=== PATIENT | male | born 1940 | race Caucasian/White ===

== ENCOUNTER 2022-01-05 10:15 | Inpatient (IN) | payer MEDICARE, BC ==
[2022-01-05 11:17] LABS: #Eosinphils 0.1 thou/uL (0.0-0.7); #Lymphocytes 1.9 thou/uL (1.20-3.40); #Monocytes 0.6 thou/uL (0.11-0.59); #Neutrophils 5.8 thou/uL (1.40-6.50); %Basophils 0.1 % (0.0-1.0); %Eosinophils 0.6 % (0.0-10.0); %Lymphocytes 22.9 % (21.0-51.0); %Monocytes 7.6 % (0.0-10.0); %Neutrophils 68.8 % (42.0-75.0); Hemoglobin 14.1 g/dL (14.0-18.0); Mean Corpuscular HGB CONC 33.8 g/dL (32.0-36.0); Mean Corpuscular Hemoglobin 33.2 pg (27.0-31.0); Mean Corpuscular Volume 98.3 fL (78.0-98.0); Mean Platelet Volume 7.2 fL (7.4-10.4); Platelet Count 296 thou/uL (130-400); RBC Distribution Width 12.3 % (11.5-14.5); Red Blood Cell (RBC) Count 4.25 mill/uL (4.70-6.10); White Blood Cell (WBC) Count 8.4 thou/uL (4.8-10.8)
[2022-01-05 11:23] LABS: ALT (SGPT) 20 U/L (8-55); AST (SGOT) 17 U/L (5-34); Albumin 4.4 g/dL (3.4-4.8); Alkaline Phosphatase 69 U/L (40-110); Anion Gap 13 mmol/L (10-20); BUN (Urea Nitrogen) 13 mg/dL (8.4-25.7); Bilirubin, Total 0.8 mg/dL (0.2-1.2); CK (CPK) 44 U/L (30-200); Calc. Creatinine Clearance 0 mL/min (70-130); Calcium 9.6 mg/dL (7.8-10.44); Carbon Dioxide 26 mmol/L (23-31); Chloride 96 mmol/L (98-107); Globulin 3.2 g/dL (2.4-3.5); Glucose 153 mg/dL (83-110); Lipase 17 U/L (8-78); Potassium 4.2 mmol/L (3.5-5.1); Protein, Total 7.6 g/dL (5.8-8.1); Sodium 131 mmol/L (136-145)
[2022-01-05 11:27] LABS: CKMB 0.7 ng/mL (0-6.6)
[2022-01-05] MEDS ORDERED: Dexamethasone 10 MG/ML VIAL ONE (11:52)
[2022-01-05] MEDS ORDERED: Iopamidol 370 76% 100 ML VIAL ONE (11:54)
[2022-01-05] MEDS ORDERED: Magnevist 469MG/ML 20 ML VIAL ONE (11:59)
[2022-01-05] MEDS ORDERED: levETIRAcetam in NS 1,000 MG in Premix Bag 1 BAG IVPB SCH (13:00)
[2022-01-05] MEDS ORDERED: Ondansetron ODT 4 MG TAB PO PRN (13:57)
[2022-01-05] MEDS ORDERED: Acetaminophen 325 MG TAB PO PRN (13:57)
[2022-01-05] MEDS ORDERED: Ondansetron PF 4 MG/2 ML Vial IVP PRN (13:57)
[2022-01-05 14:05] LABS: Bilirubin Negative (Negative); Blood, Urine Negative (Negative); Clarity Clear (Clear); Glucose, Urine (Dipstick) Normal (Negative); Ketone, Urine Negative (Negative); Leukocyte Negative Leu/uL (Negative); Nitrite Negative (Negative); Protein, Urine (Dipstick) Negative (Neg-Trace); Specific Gravity, Urine 1.028 (1.002-1.036); Urobilinogen Normal mg/dL (Less than 2)
[2022-01-05] MEDS ORDERED: levETIRAcetam in NS 100 ML ONE (14:54)
[2022-01-05 16:29] LABS: SARS-CoV-2 NAA Rapid Test Not Detected (NotDetected)
[2022-01-05 17:08] VITALS: BMI 21.4
[2022-01-05] MEDS: Dexamethasone 4 MG TAB PO SCH ×2 (18:22→23:37)
[2022-01-05] MEDS ORDERED: hydrALAZINE 20 MG/ML VIAL ONE (19:50)
[2022-01-05] MEDS: levETIRAcetam 500 MG TAB PO SCH (20:31)
[2022-01-05] MEDS ORDERED: levETIRAcetam in NS 500 MG in Premix Bag 1 BAG IVPB SCH (21:00)
[2022-01-06 05:47] LABS: #Lymphocytes 1.2 thou/uL (1.20-3.40); #Monocytes 0.1 thou/uL (0.11-0.59); #Neutrophils 5.3 thou/uL (1.40-6.50); %Basophils 0.6 % (0.0-1.0); %Eosinophils 0.3 % (0.0-10.0); %Lymphocytes 17.4 % (21.0-51.0); %Monocytes 2.1 % (0.0-10.0); %Neutrophils 79.6 % (42.0-75.0); Hemoglobin 13.9 g/dL (14.0-18.0); Mean Corpuscular HGB CONC 33.6 g/dL (32.0-36.0); Mean Corpuscular Hemoglobin 32.9 pg (27.0-31.0); Mean Corpuscular Volume 97.9 fL (78.0-98.0); Mean Platelet Volume 7.3 fL (7.4-10.4); Platelet Count 293 thou/uL (130-400); Red Blood Cell (RBC) Count 4.22 mill/uL (4.70-6.10); White Blood Cell (WBC) Count 6.7 thou/uL (4.8-10.8)
[2022-01-06] MEDS: Dexamethasone 4 MG TAB PO SCH ×4 (05:48→23:13)
[2022-01-06 06:15] LABS: Anion Gap 12 mmol/L (10-20); BUN (Urea Nitrogen) 11 mg/dL (8.4-25.7); Calc. Creatinine Clearance 97 mL/min (70-130); Calcium 9.2 mg/dL (7.8-10.44); Carbon Dioxide 23 mmol/L (23-31); Chloride 101 mmol/L (98-107); Glucose 144 mg/dL (83-110); Sodium 132 mmol/L (136-145)
[2022-01-06] MEDS: levETIRAcetam 500 MG TAB PO SCH ×2 (08:22→20:11)
[2022-01-06] MEDS ORDERED: Dextrose 50% Abboject 50 ML SYRINGE SLOW IVP PRN (09:37)
[2022-01-06] MEDS ORDERED: Dextrose 5% in Water 1,000 ML IV PRN (09:37)
[2022-01-06] MEDS ORDERED: Lisinopril 20 MG TAB PO SCH (10:00)
[2022-01-06] MEDS: Amlodipine 5 MG TAB PO SCH ×3 (12:11→20:12)
[2022-01-06] MEDS: HumaLOG 300 UNITS/3 ML VIAL SC PRN ×2 (12:13→20:16)
[2022-01-06] MEDS: Lisinopril 20 MG TAB PO SCH (20:12)
[2022-01-07] MEDS: Dexamethasone 4 MG TAB PO SCH ×3 (05:24→18:34)
[2022-01-07] MEDS ORDERED: Thrombin 5000 UNITS/5 ML VIAL ONE (07:14)
[2022-01-07] MEDS ORDERED: Sodium Chloride 0.9% 0 ML ONE (07:14)
[2022-01-07] MEDS ORDERED: Bacitracin Zinc Ointment 30 gm TUBE ONE (07:14)
[2022-01-07] MEDS ORDERED: Papaverine 60 MG/2 ML VIAL ONE (07:15)
[2022-01-07] MEDS ORDERED: Fentanyl 100 MCG/2 ML VIAL ONE (07:20)
[2022-01-07] MEDS ORDERED: Phenylephrine 10 MG/ML VIAL ONE (07:20)
[2022-01-07] MEDS ORDERED: ceFAZolin 2 GM/Dextrose 50 ML IVPB ONE (08:07)
[2022-01-07] MEDS ORDERED: Glycopyrrolate 0.2 MG/ML 5 ML SYRINGE ONE (08:20)
[2022-01-07] MEDS ORDERED: Lidocaine 1% PF 5 ML VIAL ONE (08:20)
[2022-01-07] MEDS ORDERED: PROPOFOL 200 MG/20 ML VIAL ONE (08:20)
[2022-01-07] MEDS ORDERED: Rocuronium Bromide 10 MG/ML (10ML VIAL) ONE (08:20)
[2022-01-07] MEDS ORDERED: Xylocaine 1% w/ Epi 1:100K 10 ML VIAL ONE (09:03)
[2022-01-07] MEDS ORDERED: SUGAMMADEX SODIUM 200 MG/2 ML VIAL ONE (10:39)
[2022-01-07] MEDS ORDERED: hydrALAZINE 20 MG/ML VIAL ONE (10:50)
[2022-01-07] MEDS ORDERED: Acetaminophen/Codeine 30-300mg Tablet PO PRN (10:51)
[2022-01-07] MEDS ORDERED: Morphine 2 MG/ML VIAL SLOW IVP PRN (10:51)
[2022-01-07] MEDS ORDERED: HYDROcodone/Acetaminophen 7.5/325 mg Tablet PO PRN (10:51)
[2022-01-07] MEDS ORDERED: traMADol HCl 50 MG TAB PO PRN (10:51)
[2022-01-07] MEDS: Amlodipine 5 MG TAB PO SCH ×2 (13:07→20:35)
[2022-01-07] MEDS: Atorvastatin Calcium 20 MG TAB PO SCH (13:07)
[2022-01-07] MEDS: levETIRAcetam 500 MG TAB PO SCH ×2 (13:07→20:36)
[2022-01-07] MEDS: Lisinopril 20 MG TAB PO SCH ×2 (13:07→20:36)
[2022-01-07] MEDS: ceFAZolin 2 GM/Dextrose 50 ML 2 GM in Premix Bag 1 BAG IVPB SCH ×2 (14:41→21:12)
[2022-01-07] MEDS ORDERED: Labetalol HCl 100 MG/20 ML VIAL SLOW IVP PRN (19:15)
[2022-01-07] MEDS: hydrALAZINE 20 MG/ML VIAL SLOW IVP PRN (20:48)
[2022-01-08] MEDS: Dexamethasone 4 MG TAB PO SCH ×5 (00:46→22:13)
[2022-01-08 04:20] LABS: #Basophils 0.1 thou/uL (0.0-0.2); #Monocytes 1.8 thou/uL (0.11-0.59); #Neutrophils 15.5 thou/uL (1.40-6.50); %Basophils 0.5 % (0.0-1.0); %Eosinophils 0.1 % (0.0-10.0); %Lymphocytes 5.4 % (21.0-51.0); %Monocytes 9.9 % (0.0-10.0); %Neutrophils 84.1 % (42.0-75.0); Hemoglobin 13.6 g/dL (14.0-18.0); Mean Corpuscular HGB CONC 35.1 g/dL (32.0-36.0); Mean Corpuscular Hemoglobin 34.4 pg (27.0-31.0); Mean Corpuscular Volume 98.2 fL (78.0-98.0); Mean Platelet Volume 8.5 fL (7.4-10.4); Platelet Count 209 thou/uL (130-400); RBC Distribution Width 12.5 % (11.5-14.5); Red Blood Cell (RBC) Count 3.94 mill/uL (4.70-6.10); White Blood Cell (WBC) Count 18.4 thou/uL (4.8-10.8)
[2022-01-08 04:39] LABS: Anion Gap 11 mmol/L (10-20); BUN (Urea Nitrogen) 16 mg/dL (8.4-25.7); Calc. Creatinine Clearance 89 mL/min (70-130); Calcium 8.7 mg/dL (7.8-10.44); Carbon Dioxide 23 mmol/L (23-31); Chloride 101 mmol/L (98-107); Glucose 132 mg/dL (83-110); Potassium 4.1 mmol/L (3.5-5.1); Sodium 131 mmol/L (136-145)
[2022-01-08] MEDS: ceFAZolin 2 GM/Dextrose 50 ML 2 GM in Premix Bag 1 BAG IVPB SCH (05:53)
[2022-01-08] MEDS: levETIRAcetam 500 MG TAB PO SCH ×2 (09:00→21:50)
[2022-01-08] MEDS: Atorvastatin Calcium 20 MG TAB PO SCH (09:00)
[2022-01-08] MEDS: Lisinopril 20 MG TAB PO SCH ×2 (09:00→21:51)
[2022-01-08] MEDS: Amlodipine 5 MG TAB PO SCH ×2 (09:02→21:51)
[2022-01-08] MEDS: hydrALAZINE 20 MG/ML VIAL SLOW IVP PRN ×2 (21:51→22:15)
[2022-01-09] MEDS: Dexamethasone 4 MG TAB PO SCH ×3 (05:43→19:23)
[2022-01-09] MEDS: levETIRAcetam 500 MG TAB PO SCH ×2 (08:36→19:19)
[2022-01-09] MEDS: Atorvastatin Calcium 20 MG TAB PO SCH (08:36)
[2022-01-09] MEDS: Lisinopril 20 MG TAB PO SCH ×2 (08:36→19:18)
[2022-01-09] MEDS: Amlodipine 5 MG TAB PO SCH ×2 (08:36→19:19)
[2022-01-09 15:59] VITALS: TEMP 98.4
[2022-01-09] MEDS: hydrALAZINE 20 MG/ML VIAL SLOW IVP PRN (16:18)
[2022-01-09 20:24] VITALS: BP 129/60
[2022-01-10] MEDS ORDERED: Dexamethasone 1 MG TAB PO SCH (12:00)
[2022-01-12] MEDS ORDERED: Dexamethasone 1 MG TAB PO SCH (12:00)
[2022-01-14] MEDS ORDERED: Dexamethasone 1 MG TAB PO SCH (12:00)
== END 2022-01-09 20:13 | DRG 25 ==
LOC: ERS 10:15 → ERHOLD 12:56 → EDBD 12:56 → NEURO 16:37 → CCU 01-07 07:54 → SURG A 01-08 15:34
PROVIDERS: ADMIT Internal Medicine; ATTEND Family Medicine
PROC: 00B70ZZ Excision of Cerebral Hemisphere, Open Approach (ICD-10-PCS; principal; 2022-01-07)
DX: C71.1 Malignant neoplasm of frontal lobe (principal); G93.6 Cerebral edema; G93.41 Metabolic encephalopathy; E87.1 Hypo-osmolality and hyponatremia; Z20.822 Contact with and (suspected) exposure to COVID-19; Z66 Do not resuscitate; E78.5 Hyperlipidemia, unspecified; R47.1 Dysarthria and anarthria; I10 Essential (primary) hypertension; R47.02 Dysphasia; Z79.899 Other long term (current) drug therapy
CPT/HCPCS: 36415; 36416; 70450; 70553; 71045; 71260; 74177; 80048; 80053; 81003; 82140; 82550; 82553; 83690; 83880; 84443; 84484; 85025; 88307; 93005; 93970; 96374; A9579; C1713; C1769; J0360; J0690; J1100; J1815; J1953; J2370; J2440; J2704; J3010; J8540; Q9967; U0002

== ENCOUNTER 2022-01-30 14:58 | Outpatient (CLI) | payer MEDICARE, BC ==
[~2022-01-30 14:58] MED LIST: Magnevist 469MG/ML 20 ML VIAL ONE
== END 2022-01-30 14:59 | disposition home or self-care (01) ==
LOC: TBSIIMAG 14:58
PROVIDERS: ATTEND Radiology Radiation Oncology
DX: C71.1 Malignant neoplasm of frontal lobe (principal); Z98.890 Other specified postprocedural states
CPT/HCPCS: 70553